=== PATIENT | male | born 1965 | race Hispanic/Latino ===

== ENCOUNTER 2022-08-28 00:03 | Emergency (ER) | payer BC ==
[~2022-08-28] VITALS: Ht 170.2 cm; Wt 97.5 kg
[2022-08-28] MEDS ORDERED: Morphine 4mg INJECTION 4 MG/ML INJ ONE (00:20)
[2022-08-28] MEDS ORDERED: Morphine 4mg INJECTION 4 MG/ML INJ IM ONE (00:30)
[2022-08-28] MEDS ORDERED: ACETAMINOPHEN-1 EAC4 PO (02:25)
[2022-08-28 02:36] VITALS: BP 111/78
[2022-09-02] MEDS ORDERED: LISINOPRIL-HCT1 EACH PO (16:06)
[2022-09-02] MEDS ORDERED: PIOGLITAZONE HC45 MG PO (16:06)
[2022-09-02] MEDS ORDERED: EMERGEN-C 1,01000 MG PO (16:06)
[2022-09-02] MEDS ORDERED: SIMVASTATIN40 MG PO (16:06)
[2022-09-02] MEDS ORDERED: LORTAB 10 MG-3473 ML PO (16:06)
[2022-09-02] MEDS ORDERED: NEURONTIN300 MG PO (16:06)
[2022-09-02] MEDS ORDERED: XIGDUO XR 5 MG1 EAC1 PO (16:06)
[2022-09-02] MEDS ORDERED: GLIMEPIRIDE2 MG PO (16:06)
== END 2022-08-28 03:30 | disposition home or self-care (01) ==
LOC: ER 00:10
DX: S82.51XA Displaced fracture of medial malleolus of right tibia, initial encounter for closed fracture (principal); S82.61XA Displaced fracture of lateral malleolus of right fibula, initial encounter for closed fracture; W01.0XXA Fall on same level from slipping, tripping and stumbling without subsequent striking against object, initial encounter; I10 Essential (primary) hypertension; E11.40 Type 2 diabetes mellitus with diabetic neuropathy, unspecified; Z79.84 Long term (current) use of oral hypoglycemic drugs; S82.841A Displaced bimalleolar fracture of right lower leg, initial encounter for closed fracture
CPT/HCPCS: 73610; 73630; 99284; J2270

== ENCOUNTER → 2022-09-07 | Day surgery (SDC) | payer BC ==
[2022-09-06 10:15] LABS: ANION GAP 15.1 mmol/L (8-16); CALCIUM 9.3 mg/dL (8.4-10.2); CREATININE, SERUM 1.03 mg/dL (0.72-1.25); POTASSIUM 5.1 mmol/L (3.5-5.1)
[~2022-09-07] MED LIST: ACETAMINOPHEN-1 EAC4 PO; BUPIVACAINE HCL 0.5% INJ 30 ML VIAL INJ ONE; CEFAZOLIN SODIUM 2 GM ONE; DEXAMETHASONE SOD PHOS INJ 4 MG/ML SDV ONE; EMERGEN-C 1,01000 MG PO; EPHEDRINE SULFATE INJ 50 MG/ML VIAL ONE; FENTANYL CITRATE/PF 100MCG/2 ML INJ ONE; GLIMEPIRIDE2 MG PO; LACTATED RINGER'S 1,000 ML ONE; LIDOCAINE HCL 2% LOCAL INJ 5 ML SDV VIAL INJ ONE; LISINOPRIL-HCT1 EACH PO; LORTAB 10 MG-3473 ML PO; MIDAZOLAM HCL 2 MG/2 ML VIAL ONE; NEURONTIN300 MG PO; ONDANSETRON HCL INJ 2MG/ML 2ML 2 MG/ML VIAL ONE; PIOGLITAZONE HC45 MG PO; POVIDONE IODINE 0.05% 0.05 % ML PO ONE; PROPOFOL IV EMULSION 10 MG/ML 20 ML VIAL ONE; ROPIVACAINE 0.5% 5 MG/ML 30 ML SDV ONE; SEVOFLURANE INHAL SOLN 250 ML PEN BTL ONE; SIMVASTATIN40 MG PO; Vancomycin IV 1 GM VIAL ONE; XIGDUO XR 5 MG1 EAC1 PO
[2022-09-07] MEDS: FENTANYL CITRATE/PF 100MCG/2 ML INJ ONE ×2 (15:21→15:31)
[2022-09-07 15:55] VITALS: BP 134/77
== END | disposition home or self-care (01) ==
LOC: OR 11:20
PROVIDERS: ATTEND Orthopaedic Surgery Foot and Ankle Surgery
DX: S82.851A Displaced trimalleolar fracture of right lower leg, initial encounter for closed fracture (principal); I10 Essential (primary) hypertension; Z71.89 Other specified counseling; F17.200 Nicotine dependence, unspecified, uncomplicated; X50.1XXA Overexertion from prolonged static or awkward postures, initial encounter; Z01.810 Encounter for preprocedural cardiovascular examination; Z01.812 Encounter for preprocedural laboratory examination; Z79.84 Long term (current) use of oral hypoglycemic drugs; Z79.899 Other long term (current) drug therapy
CPT/HCPCS: 27822; 36415 ×2; 76000; 80048; 82948; 93005; C1713 ×13; J1100; J2001; J2250; J2405; J2704; J2795; J3010; J3370; J7121